=== PATIENT | male | born 1950 | race Caucasian/White ===

== ENCOUNTER → 2016-08-02 | Outpatient (CLI) | payer OTHER ==
[2016-01-29 13:00] VITALS: BP 107/64
[~2016-08-02] MED LIST: ALLO300T PO; ASPI-482 PO; CANA300T PO; CAPT100T2 PO; CONTRAST GIVEN MC PRN; FEXO180T5 PO; GLIM4TAB2 PO; GLUC-126 PO; IOHEXOL 240 MG/ML 50ML VIAL. PO ONE; ISOS20TA2 PO; LEVO150T5 PO; MATURE MULTIVITAMIN PO; METF10002 PO; METO-269 PO; METO50TA2 PO; OMEG1CAP6 PO; ROSUVASTATIN CA20 MG PO; SITA100T PO; TORS20TA2 PO; [UNRECOGNIZED DRUG - OTHER]
--- NOTE | 2016-08-02 12:34 | RAD ---
CT of the abdomen without contrast, 08/02/2016: History: Umbilical hernia No IV contrast was administered as requested. Oral contrast material was given for GI tract opacification. Comparison is made to a study from 03/16/2016. Again noted is an umbilical hernia containing only fat. No bowel herniation is evident. This hernia extends inferiorly within the patient's abdominal pannus. The inferior margin of the hernia was not completely included on today's abdominal scans. The hernia sac measures approximately 7 cm in width. It appears to be of similar size and configuration when compared to the previous exam. Coronary artery calcifications are present. The liver demonstrates a prominent Estefania's lobe. A couple of tiny foci of increased density are noted along the dependent wall of the gallbladder raising the possibility of tiny calculi or sludge. No pericholecystic edema is seen. The pancreas is unremarkable. The spleen is of normal size. There is mild bilateral renal cortical scarring. The unopacified kidneys show no evidence of obstruction. There is a 3.8 cm cystic structure along the left posterior wall of the urinary bladder compatible with a bladder diverticulum. The bladder is otherwise unremarkable. Aortic calcific plaquing is present without evidence of aneurysm. No retroperitoneal or mesenteric adenopathy is seen. The visualized bowel loops are not dilated. Colonic diverticula are present, most numerous in the sigmoid region. IMPRESSION: 1. Moderate sized fat-containing umbilical hernia. 2. Colonic diverticulosis. 3. Small bladder diverticulum. 4. Possible cholelithiasis.
== END | disposition home or self-care (01) ==
LOC: CT 09:45
PROVIDERS: ATTEND Nurse Practitioner Family
DX: K42.9 Umbilical hernia without obstruction or gangrene (principal); K57.30 Diverticulosis of large intestine without perforation or abscess without bleeding; N32.3 Diverticulum of bladder
CPT/HCPCS: 74150; Q9966

== ENCOUNTER → 2017-05-04 | Outpatient (CLI) | payer OTHER, MEDICARE ==
[2016-01-29 13:00] VITALS: BP 107/64
[~2017-05-04] MED LIST changes: -CONTRAST GIVEN MC PRN; +FEXO180T16 PO; -FEXO180T5 PO; -IOHEXOL 240 MG/ML 50ML VIAL. PO ONE; +METF-620 PO; -METF10002 PO; -METO50TA2 PO; +METO50TA6 PO
--- NOTE | 2017-05-04 14:51 | RAD ---
Indication: Nonhealing wound second toe for one month. Technique: 3 views of the right foot are submitted for review. No comparison is available. Findings: There is no gross bone destruction. There is no fracture. There is hammertoe deformity noted. 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 Impression: No radiographic evidence of osteomyelitis.
== END | disposition home or self-care (01) ==
LOC: PMGWOUND 10:40
PROVIDERS: ATTEND Preventive Medicine Undersea and Hyperbaric Medicine
DX: E11.621 Type 2 diabetes mellitus with foot ulcer (principal); L97.511 Non-pressure chronic ulcer of other part of right foot limited to breakdown of skin; E03.9 Hypothyroidism, unspecified; I25.10 Atherosclerotic heart disease of native coronary artery without angina pectoris; E78.5 Hyperlipidemia, unspecified; G47.30 Sleep apnea, unspecified; I10 Essential (primary) hypertension; E66.01 Morbid (severe) obesity due to excess calories; Z68.41 Body mass index [BMI] 40.0-44.9, adult; Z90.89 Acquired absence of other organs
CPT/HCPCS: 73630; 97597

== ENCOUNTER → 2017-05-11 | Outpatient (CLI) | payer OTHER, MEDICARE ==
[2016-01-29 13:00] VITALS: BP 107/64
== END | disposition home or self-care (01) ==
LOC: PMGWOUND 10:38
PROVIDERS: ATTEND Preventive Medicine Undersea and Hyperbaric Medicine
DX: E11.621 Type 2 diabetes mellitus with foot ulcer (principal); L97.511 Non-pressure chronic ulcer of other part of right foot limited to breakdown of skin; E03.9 Hypothyroidism, unspecified; I25.10 Atherosclerotic heart disease of native coronary artery without angina pectoris; E78.5 Hyperlipidemia, unspecified; G47.30 Sleep apnea, unspecified; I10 Essential (primary) hypertension; M17.0 Bilateral primary osteoarthritis of knee; E66.01 Morbid (severe) obesity due to excess calories; Z68.41 Body mass index [BMI] 40.0-44.9, adult; Z90.89 Acquired absence of other organs
CPT/HCPCS: 97597

== ENCOUNTER → 2017-05-18 | Outpatient (CLI) | payer OTHER, MEDICARE ==
[2016-01-29 13:00] VITALS: BP 107/64
== END | disposition home or self-care (01) ==
LOC: PMGWOUND 11:37
PROVIDERS: ATTEND Preventive Medicine Undersea and Hyperbaric Medicine
DX: E11.621 Type 2 diabetes mellitus with foot ulcer (principal); L97.511 Non-pressure chronic ulcer of other part of right foot limited to breakdown of skin; E03.9 Hypothyroidism, unspecified; I25.10 Atherosclerotic heart disease of native coronary artery without angina pectoris; E78.5 Hyperlipidemia, unspecified; G47.30 Sleep apnea, unspecified; I10 Essential (primary) hypertension; M17.0 Bilateral primary osteoarthritis of knee; E66.01 Morbid (severe) obesity due to excess calories; Z68.41 Body mass index [BMI] 40.0-44.9, adult; Z90.89 Acquired absence of other organs
CPT/HCPCS: 97597

== ENCOUNTER → 2017-05-25 | Outpatient (CLI) | payer OTHER, MEDICARE | END | disposition home or self-care (01) | LOC: PMGWOUND 11:15 | DX: E11.621 Type 2 diabetes mellitus with foot ulcer (principal); L97.511 Non-pressure chronic ulcer of other part of right foot limited to breakdown of skin; I25.10 Atherosclerotic heart disease of native coronary artery without angina pectoris; M17.0 Bilateral primary osteoarthritis of knee; I10 Essential (primary) hypertension; E78.5 Hyperlipidemia, unspecified; E03.9 Hypothyroidism, unspecified; E66.01 Morbid (severe) obesity due to excess calories; E11.36 Type 2 diabetes mellitus with diabetic cataract; G47.30 Sleep apnea, unspecified; Z68.41 Body mass index [BMI] 40.0-44.9, adult | CPT/HCPCS: 97597 ==

== ENCOUNTER → 2017-06-01 | Outpatient (CLI) | payer OTHER, MEDICARE | END | disposition home or self-care (01) | LOC: PMGWOUND 11:26 | DX: E11.621 Type 2 diabetes mellitus with foot ulcer (principal); L97.511 Non-pressure chronic ulcer of other part of right foot limited to breakdown of skin; E11.36 Type 2 diabetes mellitus with diabetic cataract; E03.9 Hypothyroidism, unspecified; I25.10 Atherosclerotic heart disease of native coronary artery without angina pectoris; E78.5 Hyperlipidemia, unspecified; G47.30 Sleep apnea, unspecified; I10 Essential (primary) hypertension; M17.0 Bilateral primary osteoarthritis of knee; E66.01 Morbid (severe) obesity due to excess calories; Z68.41 Body mass index [BMI] 40.0-44.9, adult; Z90.89 Acquired absence of other organs | CPT/HCPCS: 99213 ==

== ENCOUNTER → 2017-06-15 | Outpatient (CLI) | payer OTHER, MEDICARE | END | disposition home or self-care (01) | LOC: PMGWOUND 11:11 | DX: E11.621 Type 2 diabetes mellitus with foot ulcer (principal); L97.511 Non-pressure chronic ulcer of other part of right foot limited to breakdown of skin; E11.36 Type 2 diabetes mellitus with diabetic cataract; E03.9 Hypothyroidism, unspecified; I25.10 Atherosclerotic heart disease of native coronary artery without angina pectoris; E78.5 Hyperlipidemia, unspecified; G47.30 Sleep apnea, unspecified; I10 Essential (primary) hypertension; M17.0 Bilateral primary osteoarthritis of knee; E66.01 Morbid (severe) obesity due to excess calories; Z68.41 Body mass index [BMI] 40.0-44.9, adult; Z90.89 Acquired absence of other organs | CPT/HCPCS: 99213 ==

== ENCOUNTER 2018-02-03 18:33 | Emergency (ER) | payer OTHER ==
[~2018-02-03] VITALS: Ht 175.3 cm; Wt 129.3 kg
[~2018-02-03 18:33] MED LIST changes: -METF-620 PO; +METF10007 PO
[2018-02-03 20:53] VITALS: BP 135/74
[2018-02-03] MEDS ORDERED: CYCLOBENZAPRINE 10 MG TABLET. PO ONE (21:30)
[2018-02-03] MEDS ORDERED: DEXAMETHASONE 4 MG TABLET PO ONE (21:30)
[2018-02-03] MEDS ORDERED: CYCL10TA2 PO (21:44)
--- NOTE | 2018-02-03 21:45 | PHYS DOC ---
Past Medical History Past Medical History: Diabetes-Type II, Hypertension, Hypothyroid, Other Additional Past Medical Histor: gout Past Surgical History: Tonsillectomy, Other Additional Past Surgical Histo: back surgery, vasectomy Alcohol Use: Rarely Drug Use: None Adult General Chief Complaint Chief Complaint: LOWER BACK PAIN OR INJURY HPI HPI Patient is a 67 year old male who presents with chronic low back pain times weeks upon getting up in the morning and then the pain will subside when he goes to work. Patient states today he awoke and had pain in when he bent over to put his boots on his lower back pain was unbearable and states it hurts more on the left lower back and radiates down the left leg states is sharp. Patient states that he took 2 Aleve at 1700 tonight and it usually helps but this time it did not. Review of Systems Review of Systems Constitutional: Denies fever or chills [] Eyes: Denies change in visual acuity, redness, or eye pain [] HENT: Denies nasal congestion or sore throat [] Respiratory: Denies cough or shortness of breath [] Cardiovascular: No additional information not addressed in HPI [] GI: Denies abdominal pain, nausea, vomiting, bloody stools or diarrhea [] : Denies dysuria or hematuria [] Musculoskeletal: Denies back pain or joint pain [] Integument: Denies rash or skin lesions [] Neurologic: Denies headache, focal weakness or sensory changes [] Endocrine: Denies polyuria or polydipsia [] All other systems were reviewed and found to be within normal limits, except as documented in this note. Current Medications Current Medications Current Medications Medications (Trade) Dose Ordered Sig/Evangelina Start Time Stop Time Status Last Admin Dose Admin Cyclobenzaprine HCl (Flexeril) 10 mg 1X ONCE 02/03/18 21:30 02/03/18 21:31 DC 02/03/18 21:37 10 MG Dexamethasone (Decadron) 6 mg 1X ONCE 02/03/18 21:30 02/03/18 21:31 DC 02/03/18 21:37 6 MG Allergies Allergies Allergies Coded Allergies Type Severity Reaction Last Updated Verified No Known Drug Allergies 11/29/13 No Physical Exam Physical Exam Constitutional: Well developed, well nourished, no acute distress, non-toxic appearance. [] HENT: Normocephalic, atraumatic, bilateral external ears normal, oropharynx moist, no oral exudates, nose normal. [] Eyes: PERRLA, EOMI, conjunctiva normal, no discharge. [] Neck: Normal range of motion, no tenderness, supple, no stridor. [] Cardiovascular:Heart rate regular rhythm, no murmur [] Lungs & Thorax: Bilateral breath sounds clear to auscultation [] Abdomen: Bowel sounds normal, soft, no tenderness, no masses, no pulsatile masses. [] Skin: Warm, dry, no erythema, no rash. [] Back: No tenderness, no CVA tenderness. [] Extremities: No tenderness, no cyanosis, no clubbing, ROM intact, no edema. [] Neurologic: Alert and oriented X 3, normal motor function, normal sensory function, no focal deficits noted. [] Psychologic: Affect normal, judgement normal, mood normal. [] Current Patient Data Vital Signs Vital Signs Date Time Temp Pulse Resp B/P (MAP) Pulse Ox O2 Delivery O2 Flow Rate FiO2 02/03/18 20:53 98.3 79 18 135/74 (94) 95 Room Air 98.3 EKG EKG [] Radiology/Procedures Radiology/Procedures Lumbar spine Impressions: [facility] [address] [place] [address] IMAGING REPORT Signed PATIENT: ISSAC FRANCO ACCOUNT: [id number] : 1950 LOCATION: ER AGE: 67 SEX: M EXAM STATUS: REG ER ORD. PHYSICIAN: ANGY WEISS APRN REASON: pain PROCEDURE: LUMBAR SPINE 2-3V Indication: Low back pain for of the TECHNIQUE: 3 views of the lumbar spine COMPARISON: None FINDINGS: The lumbar spine is in normal anatomic alignment. There are 5 lumbar vertebral bodies. No compression deformities. No significant intervertebral disc space narrowing or productive changes. Mild lower lumbar facet arthropathy. SI joints within normal limits. IMPRESSION: No compression deformities. Mild multilevel degenerative disc disease. Electronically signed by: Simón Durbin DO (02/03/2018 10:07 PM) [facility] DICTATED and SIGNED BY: SIMÓN DURBIN DO DATE: 02/03/18 7360 Course & Med Decision Making Course & Med Decision Making Patient is a 67 year old male who presents with chronic low back pain times weeks upon getting up in the morning and then the pain will subside when he goes to work. Patient states today he awoke and had pain in when he bent over to put his boots on his lower back pain was unbearable and states it hurts more on the left lower back and radiates down the left leg states is sharp. Patient states that he took 2 Aleve at 1700 tonight and it usually helps but this time it did not. Patient states that since he has been sitting in the waiting room that his pain is actually down to 1 or 2. Patient states the pain always subsides when he is just sitting or once he is up and moving and is also better. 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 Patient states he does a lot of lifting and pulling. He shouldn't is able to ambulate and is steady on his feet. There is slight tenderness in the lower back to palpation. Patient states he is a diabetic, has hypertension, and thyroid. Patient has no known drug allergies. Patient is neurologically intact. Patient has no extremity edema. Pedal pulses present. Patient denies chest pain or shortness of air. Skin is pink, warm and dry. Patient is stable and in no distress. Lumbar x ray shows no acute findings. Patient to be discharged home with Flexeril and he continue using Aleve for pain. Patient follow-up with his primary care as soon as possible. [] Dragon Disclaimer Dragon Disclaimer This electronic medical record was generated, in whole or in part, using a voice recognition dictation system. Departure Departure Impression: Primary Impression: Sciatica Additional Impression: Sciatica associated with disorder of lumbar spine Disposition: HOME, SELF-CARE Condition: LEFT WITHOUT BEING SEEN Referrals: LIZETH HORVATH MD (PCP) Patient Instructions: Back Pain, Adult, Sciatica Additional Instructions: Take Aleve for pain and follow up with your primary care. Scripts Cyclobenzaprine Hcl (CYCLOBENZAPRINE HCL) 10 Mg Tablet 10 MG PO TID, #20 TAB Prov: ANGY WEISS Molly BOWDEN 02/03/18 Attending Signature Attending Signature I have reviewed the PA/MANAGER SOUND's note and plan of care. I was available for consultation as needed during the patient's visit in the emergency department. I agree with the clinical impression, plan, and disposition. Problem Qualifiers Primary Impression: Sciatica Laterality: left Qualified Codes: M54.32 - Sciatica, left side ANGY WEISS APRN Feb 03, 2018 21:45 AYAZ ROLAND DO Feb 05, 2018 04:22
--- NOTE | 2018-02-03 22:10 | RAD ---
Indication: Low back pain for of the TECHNIQUE: 3 views of the lumbar spine COMPARISON: None FINDINGS: The lumbar spine is in normal anatomic alignment. There are 5 lumbar vertebral bodies. No compression deformities. No significant intervertebral disc space narrowing or productive changes. Mild lower lumbar facet arthropathy. SI joints within normal limits. IMPRESSION: No compression deformities. Mild multilevel degenerative disc disease. Electronically signed by: Simón Durbin DO (02/03/2018 10:07 PM) [facility]
== END 2018-02-03 22:38 | disposition home or self-care (01) ==
LOC: ER 18:33
DX: M54.42 Lumbago with sciatica, left side (principal); E03.9 Hypothyroidism, unspecified; E11.9 Type 2 diabetes mellitus without complications; I10 Essential (primary) hypertension; M10.9 Gout, unspecified
CPT/HCPCS: 72100; 99284; J8540

== ENCOUNTER → 2018-04-05 | Outpatient (CLI) | payer OTHER, MEDICARE ==
[~2018-04-05] MED LIST changes: +CYCL10TA2 PO
== END | disposition home or self-care (01) ==
LOC: LAB 10:39
PROVIDERS: ATTEND Psychiatry & Neurology Neurology with Special Qualifications in Child Neurology
DX: E11.42 Type 2 diabetes mellitus with diabetic polyneuropathy (principal)
CPT/HCPCS: 82607; 82746; 84443; 85651